=== PATIENT | male | born 1945 | race Caucasian/White ===

== ENCOUNTER 2021-03-08 16:35 | Emergency (ER) | payer MEDICARE, OTHER | END 2021-03-08 18:36 | disposition home or self-care (01) | LOC: MADERS 16:35 | DX: L03.113 Cellulitis of right upper limb (principal); I48.91 Unspecified atrial fibrillation; N40.0 Benign prostatic hyperplasia without lower urinary tract symptoms; I10 Essential (primary) hypertension; Z79.899 Other long term (current) drug therapy; Z79.82 Long term (current) use of aspirin | CPT/HCPCS: 99283 ==